=== PATIENT | female | born 1995 ===

== ENCOUNTER 2019-06-07 18:55 | Emergency (ER) | payer OTHER ==
--- NOTE | 2019-06-07 21:48 | Event Note ---
ED Screening Note ED Screening Note: left sided CP that radiates to the left arm that began today at 6PM sharp, intermittent pain no n/v states she has pain with breathing no SOB no leg swelling PMHx HLD no allergies to meds LNMP: 05/17/19 no recent travel no recent surgery she is on control pill This initial assessment/diagnostic orders/clinical plan/treatment(s) is/are subject to change based on patients health status, clinical progression and re- assessment by fellow clinical providers in the ED. Further treatment and workup at subsequent clinical providers discretion. Patient/guardian urged not to elope from the ED as their condition may be serious if not clinically assessed and managed. Initial orders include: CP protocol
[2019-06-07 23:32] LABS: Basophils # (Auto) 0.2 K/mm3 (0.0-0.1); Basophils % (Auto) 1.3 % (0.0-1.8); Eosinophils % (Auto) 0.4 % (0.0-4.3); Hematocrit 40.6 % (30.3-42.9); Hemoglobin 13.7 gm/dl (10.1-14.3); Lymphocytes # (Auto) 3.6 K/mm3 (1.2-5.4); Lymphocytes % (Auto) 27.7 % (13.4-35.0); Mean Corpuscular HGB Conc 34 % (30-34); Mean Corpuscular Volume 93 fl (79-97); Monocytes # (Auto) 0.9 K/mm3 (0.0-0.8); Monocytes % (Auto) 6.9 % (0.0-7.3); Platelet Count 388 K/mm3 (140-440); Red Blood Count 4.38 M/mm3 (3.65-5.03); Red Cell Distribution Width 12.8 % (13.2-15.2)
[2019-06-07 23:53] LABS: Alanine Aminotransferase 17 units/L (7-56); Albumin 4.4 g/dL (3.9-5); BUN/Creatinine Ratio 17; Blood Urea Nitrogen 10 mg/dL (7-17); Calcium 9.8 mg/dL (8.4-10.2); Hemolysis Index 30
--- NOTE | 2019-06-08 00:36 | XRay Report ---
CHEST 2 VIEWS INDICATION / CLINICAL INFORMATION: Upper chest and left upper arm pain. COMPARISON: None available. FINDINGS: SUPPORT DEVICES: None. HEART / MEDIASTINUM: The heart size and pulmonary vasculature are normal. The aorta is normal in alondra wedny. LUNGS / PLEURA: No significant pulmonary or pleural abnormality. No pneumothorax. ADDITIONAL FINDINGS: No osseous abnormality is seen. IMPRESSION: No acute findings. Signer Name: Sebastián Mariano MD Signed: 06/08/2019 12:31 AM Workstation Name: [id number]
--- NOTE | 2019-06-08 03:22 | Cat Scan Report ---
CT ANGIOGRAPHY OF THE CHEST WITH INTRAVENOUS CONTRAST AND MULTIPLANAR MIP RECONSTRUCTIONS INDICATION / CLINICAL INFORMATION: Chest pain and elevated d-dimer. TECHNIQUE: Axial CT images were obtained after injection of 100 cc Omnipaque 350 IV contrast using CTA protocol. 3 plane MIP / 3D reconstructions were produced. All CT scans at this location are performed using CT dose reduction for ALARA by means of automated exposure control. COMPARISON: None available. FINDINGS: There is good opacification of the pulmonary arterial system bilaterally without intraluminal filling defect to suggest acute PTE. The thoracic aorta is normal in caliber without dissection. The coronar y vessels are normal. The tracheobronchial tree is normal. The lung parenchyma is clear. There is no evidence of adenopathy or effusion. There are bilateral breast implants. The upper abdomen is normal. No osseous abnormality is seen. IMPRESSION: No evidence of acute PTE or other significant abnormality. Signer Name: Sebastián Mariano MD Signed: 06/08/2019 3:17 AM Workstation Name: [id number]
--- NOTE | 2019-06-08 04:44 | Emergency Department Report ---
ED General Adult HPI - General Chief complaint: Extremity Injury, Upper Stated complaint: CHEST PAIN/ARM PAIN Time Seen by Provider: 06/07/19 21:45 Source: patient Mode of arrival: Ambulatory Limitations: No Limitations - History of Present Illness Initial comments: Patient is a 24-year-old female with no past medical history who presents to the ED with a complaint of acute onset persistent intermittent left- sided chest pain that radiates to the left arm for 8 hours. Patient states that she was driving when she suddenly developed left-sided chest pain that had been intermittent and which got worse with deep inhalation. Patient denies nausea, vomiting, diaphoresis, dizziness, shortness of breath, headache, heavy lifting, fall, abdominal pain, back pain, neck pain, fever, chills, cough or sore throat. MD Complaint: left-sided chest pain that radiates to the left arm -: Sudden, hour(s) (8) Location: chest (left sided), upper extremity (left arm) Radiation: extremity (left arm) Severity scale (0 -10): 5 Quality: aching, sharp Consistency: intermittent Improves with: none Worsens with: none Associated Symptoms: denies other symptoms, chest pain. denies: confusion, cough, diaphoresis, headaches, loss of appetite, malaise, nausea/vomiting, rash, shortness of breath, syncope, weakness Treatments Prior to Arrival: none - Related Data Previous Rx's Medication Instructions Recorded Last Taken Type Cyclobenzaprine [Flexeril] 10 mg PO Q8H PRN #12 tablet 06/08/19 Unknown Rx Naproxen 500 mg PO Q12H PRN #20 tablet 06/08/19 Unknown Rx Allergies Allergy/AdvReac Type Severity Reaction Status Date / Time No Known Allergies Allergy Verified 06/07/19 19:32 ED Review of Systems ROS: Stated complaint: CHEST PAIN/ARM PAIN Other details as noted in HPI Constitutional: denies: chills, fever Eyes: denies: eye pain, eye discharge, vision change ENT: denies: ear pain, throat pain Respiratory: denies: cough, shortness of breath, wheezing Cardiovascular: chest pain (left-sided chest pain). denies: palpitations Endocrine: no symptoms reported Gastrointestinal: denies: abdominal pain, nausea, vomiting, diarrhea Genitourinary: denies: urgency, dysuria, discharge Musculoskeletal: denies: back pain, joint swelling, arthralgia Skin: denies: rash, lesions Neurological: denies: headache, weakness, paresthesias Psychiatric: denies: anxiety, depression Hematological/Lymphatic: denies: easy bleeding, easy bruising ED Past Medical Hx - Social History Smoking Status: Never Smoker Substance Use Type: None - Medications Home Medications: Home Medications Medication Instructions Recorded Confirmed Last Taken Type Cyclobenzaprine [Flexeril] 10 mg PO Q8H PRN #12 tablet 06/08/19 Unknown Rx Naproxen 500 mg PO Q12H PRN #20 tablet 06/08/19 Unknown Rx ED Physical Exam - General Limitations: No Limitations General appearance: alert, in no apparent distress - Head Head exam: Present: atraumatic, normocephalic, normal inspection - Eye Eye exam: Present: normal appearance, PERRL, EOMI Pupils: Present: normal accommodation - ENT ENT exam: Present: normal exam, normal orophraynx, mucous membranes moist, TM's normal bilaterally, normal external ear exam - Neck Neck exam: Present: normal inspection, full ROM - Respiratory Respiratory exam: Present: normal lung sounds bilaterally, chest wall tenderness (palpable left-sided chest wall tenderness). Absent: respiratory distress, wheezes, rales, accessory muscle use, prolonged expiratory - Cardiovascular Cardiovascular Exam: Present: regular rate, normal rhythm, normal heart sounds. Absent: bradycardia, tachycardia, systolic murmur, diastolic murmur, rubs, gal lop - GI/Abdominal GI/Abdominal exam: Present: soft, normal bowel sounds. Absent: tenderness, hyperactive bowel sounds - Extremities Exam Extremities exam: Present: normal inspection, full ROM, normal capillary refill - Back Exam Back exam: Present: normal inspection, full ROM. Absent: tenderness, muscle spasm, paraspinal tenderness - Neurological Exam Neurological exam: Present: alert, oriented X3, CN II-XII intact, normal gait, reflexes normal - Psychiatric Psychiatric exam: Present: normal affect, normal mood - Skin Skin exam: Present: warm, dry, intact, normal color. Absent: rash ED Course Vital Signs 06/07/19 21:46 Temperature 99.1 F Pulse Rate 98 H Respiratory 18 Rate Blood Pressure 134/71 O2 Sat by Pulse 100 Oximetry ED Medical Decision Making - Lab Data Result diagrams: 06/07/19 23:03 06/07/19 23:03 - EKG Data EKG shows normal: sinus rhythm Rate: normal - EKG Data Interpretation: normal EKG 06/08/19 04:45 EKG shows normal sinus rhythm with ventricular rate of 91 bpm, no ST or T-wave abnormalities. - Radiology Data Radiology results: report reviewed, image reviewed Chest x-ray shows no acute cardiopulmonary monitor use or pneumonitis. ------- Chest CTA shows no evidence of PTE or any other abnormalities. - Medical Decision Making This is a 24-year-old female who presented to the ED with left-sided chest pain. In the ED, patient is alert and oriented 3 and is not in distress. Chest x- ray shows no acute cardiopulmonary abnormalities or pneumonitis. EKG shows normal sinus rhythm with a ventricular rate of 91 beats per minute and no ST or T-wave abnormalities. Lab tests results were reviewed and are all nontoxic in including initial and repeat troponin levels. The d-dimer was however elevated to 261.57. There was acute leukocytosis of 13,000. The rest of the lab results are unremarkable. The chest CTA shows no evidence of PE or any other abnormalities. On reevaluation, patient's chest pain resolved in the ED. Patient's symptoms are likely musculoskeletal or anxiety given the fact that the patient does not have any cardiac risk factors, and heart score is 0. Her IZAIAH is also 0. The patient also does not meet well's criteria for DVT or PE. Patient was discharged home on anti-inflammatory medications and advised to follow-up with her primary care physician in 7-10 days for reevaluation or re turn to the ED immediately if symptoms get worse. - Differential Diagnosis ACS; PE; Pneumonia; costochondritis; muscle strain Critical care attestation.: If time is entered above; I have spent that time in minutes in the direct care of this critically ill patient, excluding procedure time. ED Disposition Clinical Impression: Left-sided chest wall pain, Acute costochondritis Disposition: TO HOME OR SELFCARE Is pt being admited?: No Does the pt Need Aspirin: No Condition: Stable Instructions: Chest Pain (ED), Costochondritis (ED), Muscle Strain (ED) Additional Instructions: Take medications with food, drink plenty of fluids and follow-up with your primary care physician in 7-10 days for reevaluation. Return to the ED immediately if symptoms get worse. Prescriptions: Cyclobenzaprine [Flexeril] 10 mg PO Q8H PRN #12 tablet PRN Reason: Muscle Spasm Naproxen 500 mg PO Q12H PRN #20 tablet PRN Reason: Pain , Severe (7-10) Referrals: TOMMY COLLIER MD [Staff Physician] - 3-5 Days Forms: Work/School Release Form(ED) Time of Disposition: 04:51 Print Language: FRENCH
[2019-06-08 05:29] VITALS: BP 133/67
== END 2019-06-08 05:27 | disposition home or self-care (01) ==
LOC: ED 18:55
DX: M94.0 Chondrocostal junction syndrome [Tietze] (principal)
CPT/HCPCS: 36415; 71046; 71275; 80053; 84484; 84703; 85025; 85379; 93005; 93010; 99284; Q9967